=== PATIENT | female | born 1925 | race Two or more races ===

== ENCOUNTER 2017-02-10 12:10 | Outpatient (CLI) | payer MEDICARE, MEDICAID ==
[~2017-02-10 12:10] MED LIST: ATOR20TA PO; CARV3.122 PO; CLOP75TA2 PO; PANT40TA2 PO; PARO20TA51 PO
== END 2017-02-10 23:59 | disposition home or self-care (01) ==
LOC: WOU 12:10
PROVIDERS: ATTEND Podiatrist Foot & Ankle Surgery
DX: B35.1 Tinea unguium (principal); E11.51 Type 2 diabetes mellitus with diabetic peripheral angiopathy without gangrene; E11.40 Type 2 diabetes mellitus with diabetic neuropathy, unspecified; L60.0 Ingrowing nail; Z89.512 Acquired absence of left leg below knee
CPT/HCPCS: 11730